=== PATIENT | female | born 1990 | race Caucasian/White ===

== ENCOUNTER 2025-03-02 11:50 | Emergency (ER) | payer OTHER, SELFPAY ==
[2025-03-02 11:57] VITALS: BP 129/67; PULSE 74; RESP 18; TEMP 36.2; O2SAT 99; BMI 41.1
--- NOTE | 2025-03-02 11:57 | ED_ITS ---
HPI - General Adult General Chief complaint: Wound/Laceration Stated complaint: Hand lac @ work Time Seen by Provider: 03/02/25 11:59 Source: patient Mode of arrival: ambulatory Limitations: no limitations History of Present Illness ED Provider: Fadia Perry PA-C HPI narrative: Patient is a 34 year old assigned female at with no reported medical history presenting to the emergency department today with a laceration to the left 2nd and 3rd fingers tips. Patient states that there was a metal battery plate at work that cut her fingers, she was evaluated by EMS but she has since discovered that the wound on the index finger was deeper than she originally thought. Patient denies any other complaints at this time. Relieving factors: none Exacerbating factors: none Related Data Previous Rx's ?Medication ?Instructions ?Recorded amoxicillin 875 mg-potassium 1 tab PO BID 5 days #10 t abs 03/02/25 clavulanate 125 mg tablet Allergies Allergy/AdvReac Type Severity Reaction Status Date / Time No Known Allergies Allergy Verified 03/02/25 12:00 Review of Systems 2 Constitutional: Constitutional: Reports as per HPI Eyes: Eyes: Reports as per HPI ENT: Reports as per HPI Cardiovascular: Cardiovascular: Reports as per HPI Respiratory: Respiratory: Reports as per HPI Gastrointestinal: Gastrointestinal: Reports as per HPI Genitourinary: Genitourinary: Reports as per HPI Musculoskeletal: Musculoskeletal: Reports as per HPI Integumentary/Breasts: Skin/Breast: Reports as per HPI Neurologic: Reports as per HPI Psychiatric: Psychiatric: Reports as per HPI Endocrine: Endocrine: Reports as per HPI Hematologic/Lymphatic: Hematologic/Lymphatic: Reports as per HPI Allergic/Immunologic: Allergic/Immunologic: Reports as per HPI [facility] Past Medical History Attestation statement: The following information was validated with the patient. Source: old records reviewed and nursing notes reviewed Social History Social History Advance Directives: Yes Advance Directives Information Provided: Yes Advance Directives on File: No Do you have a plan to hurt others: No Plan Physical Exam ED Vital Signs: Vital Signs - 24 hr 03/02/25 11:57 Temperature 97.1 F Pulse Rate 74 Respiratory Rate 18 Blood Pressure 129/67 Pulse Oximetry 99 Oxygen Delivery Method Room Air BMI result Body Mass Index 41.1 Const General: cooperative, no acute distress, alert and awake Nutritional Appearance: well nourished Orientation/consciousness: patient oriented x3 HENMT Head: Yes normal to inspection and Yes atraumatic Ears: hearing grossly normal bilaterally and external ears normal General nose exam: Normal external nose present, no nasal discharge noted and no epistaxis Face and sinus: Yes normal facial exam, No abrasion and No laceration Mouth: Normal oral and palatal mucosa present, no drooling and no muffled voice Eyes General: appearance normal, both eyes and all related structures Periorbital: periorbital findings normal Eyelids: Yes eyelids normal Conjunctivae: conjunctivae normal Pupils: Equal, round and reactive pupils present EOM: EOMs intact bilaterally Neck Neck: Yes normal visual inspection and Yes full ROM Resp Effort & Inspection: normal respiratory effort and able to speak in complete sentences Neuro General: patient oriented x3, moves all extremities and CN's II-XI intact bilaterally Cranial nerves: Yes Equal, round and reactive pupils present Cognition (Neuro): normal cognition Extrem Other: General: Yes full ROM and Yes capillary refill normal Psych Appearance: grossly normal Mental Status: mental status grossly normal Affect: normal affect Attitude: cooperative Thought process: Normal thought process present Thought content: Normal thought content present Insight: Good insight present (Psych) Medications Administered Discontinued Medications Generic Name Dose Route Start Last Admin Trade Name Freq PRN Reason Stop Dose Admin Diphtheria/Tetanus/Acell Pertussis 0.5 ml 03/02/25 11:59 03/02/25 12:05 Diphth,Pertus(Acell),Tet Adult 0.5 Ml Syringe IM 03/02/25 12:00 0.5 ml .ONCE ONE Administration Procedures Laceration Laceration 1: Site: other (2nd digit) Side (If applicable): left Size (cm): 1 Description: linear Depth: simple, single layer Pre-repair: irrigated extensively and deep structures intact Skin layer closed with: other (dermabond) Size (cm): other (dermabond) Technique: other (dermabond) Laceration 2: Site: other (3rd digit) Side (If applicable): left Size (cm): 0.75 Description: linear Depth: simple, single layer Pre-repair: irrigated extensively and deep structures intact Skin layer closed with: other (dermabond) Size (cm): other (dermabond) Technique: other (dermabond) Medical Decision Making Medical Decision Making MDM Narrative: Patient is a 34 year old assigned female at with no reported medical history presenting to the emergency department today with a laceration to the left 2nd and 3rd fingers tips. Patient's physical exam was as noted in the physical exam portion of this note. Patient's PMS and ROM are intact and present to the left upper extremity. I explained my physical exam findings to the patient. I answered all questions asked by the patient. Patient's left 2nd and 3rd finger lacerations were irrigated and soaked in an iodine + saline mixture, without incident. Once dried, the lacerations were repaired with dermabond, without incident. Patient's PMS was intact prior to and after cleaning and dermabond repair. Patient's lacerations were then dressed with a non-stick gauze, 2x2 regular gauze, and loose web roll gauze to secure it - without incident. Patient's PMS was intact prior to and after bandage application. I stressed the importance of the patient taking her medication as directed (either prescribed or as the over the counter packaging recommends). I stressed the importance of the patient following up with her primary care provider and given this was a work place injury - work connection. I stressed the importance of the patient returning to the emergency department immediately if her symptoms were to worsen or if she were to develop any dizziness, shortness of breath, difficulty breathing, chest pain, blurry vision, loss of vision, nausea, vomiting, abdominal pain, fever, chills, back pain, or any other complaints. Patient verbalized agreement and understanding with this treatment plan and discharge. Patient was brought up to date on her tetanus status while in the department. Patient prescribed prophylactic antibiotic given mechanism of injury. Differential Diagnosis Differential Diagnoses: The differential diagnosis associated with the presentation includes Laceration Abrasion Admission/Observation Consideration of admission/observation: Escalation of care including admission/observation considered Patient would have been admitted to the hospital had her clinical presentation warranted hospital admission. Tests considered The following testing was considered but not selected: I considered obtaining an x-ray of the left hand however, the patient's mechanism of injury and current clinical presentation did not warrant this. Prescription Management I considered prescription management with: Antibiotic (patient prescribed a prophylactic antibiotic secondary to mechanism of injury) Discharge Plan Discharge Clinical Impression: Laceration Patient Disposition: Home, Self-Care Instructions: Laceration (DC), Skin Adhesive Care (ED) Additional Instructions: Your lacerations today required skin adhesive - do NOT get the affected areas wet for at LEAST the next 7 days. Perform daily wound checks and dressing changes. Given how the injury occurred, you have been prescribed a prophylactic antibiotic - please take this as prescribed. Given this was a work place incident - you should follow up with work connection. IF you are prescribed home medications and/or you are taking over the counter medications at home - it is very important you continue to do so as prescribed / directed unless told otherwise. Follow up with a primary care provider. Return to the emergency department immediately if your symptoms worsen or if you develop any numbness, tingling, dizziness, shortness of breath, difficulty breathing, chest pain, blurry vision, loss of vision, nausea, vomiting, abdominal pain, fever, chills, back pain, or any other complaints. L If you do not have a primary care provider - call any of the below numbers to establish and follow up with a primary care provider. [facility] [place] ([place]) [phone] [place] [address], [address] [facility] [place] [place] ([facility]) [phone] [place] [address], [address] [facility], [address] [facility] [place] [facility] [place] ([facility]) [phone] [place] [address], [address] [facility], [address] [facility] [place] Primary Care ([place]) [phone] [place] [address] [address] [facility], [address] [facility] [place] Family Medicine [phone] [place] [address], [address] Please see the information below about our Patient Portal. If you are not yet enrolled in the [facility] Patient Portal, you will receive an enrollment email invitation following your visit to any [facility] [place] setting. You may also self-enroll in the Patient Portal by visiting our website: [email or web address] The following information is required to access the Patient Portal: - Your [facility] [place] [facility] Medical Record Number - Your personal home email address (must match what is in your electronic medical record, Registration staff can assist with this) - Name - Date of Capabilities of the Patient Portal: - Message some providers - View upcoming appointments - Access your health summary, medical history, and visit history - View current conditions and allergies - View procedure and lab results - View your medications, including guidelines, side effects, and precautions - Complete pre-appointment questionnaires requested by your provider - Ready summary reports of your office visits and procedures To access the Patient Portal Mobile Faiza, follow these directions: - Search MoveinBlue in the Faiza Store or Google Play Store - Download the Faiza - Search for [facility] - Enter your login/password Prescriptions: New amoxicillin-pot clavulanate 875-125 mg tablet 1 tab PO BID 5 Days Qty: 10 0RF Referrals: Work [facility] [Provider Group] Referral Note: Given this was a work place injury, you should call to establish and follow up with the work connection team. Tesha Gil, LABORATORY TECHNICIAN [Primary Care Provider, Family Practice] Stand Alone Forms: Work/School Release Print Language: Kazakh
[2025-03-02] MEDS: Diphth,Pertus(ACell),Tet Adult 0.5 ML SYRINGE IM (12:05)
[2025-03-02 12:18] VITALS: BP 129/67; PULSE 74; RESP 18; TEMP 36.2; O2SAT 99
--- OUTSIDE RECORDS SUMMARY | 2025-03-02 13:01 | XMS_ITS | Encounter Summary ---
Author Organization [facility] Address [address] [facility] [address] [place] [address] Phone Care Team Providers Care Watermelon Harvesting Supervisor Name Role Phone Tesha Gil NP Primary Care Provid er Encounter Details Date Type Department Care Team (Late st Contact Info) Description 04/17/2023 Procedure Pass OR Admitting Dept - Virtual Department [address] [place] [address] Social History Tobacco Use Types Packs/Day Years Used Date Smoking Tobacco: Never Smokeless Tobacco: Never Alcohol Use Standard Drinks/Week Comments Never 0 (1 standard drink = 0.6 oz pur e alcohol) sober since 2018 Education Answer Date Recorded Are you interested in more education? Not on chloe e 12/05/2022 Are you concerned about learning? Not on file 12/05/2022 No 12/05/2022 No 12/05/2022 Digital Access Answer Date Recorded No 12/18/2022 No 12/18/2022 Reliable internet access at home? Not on file 12/18/2022 Device with a working camera? Not on file Intimate Partner Violence Answer Date R ecorded Are you denied basic needs s uch as food, clothing, or medical care? No 04/17/2023 In the past 12 months have y ou been in a relationship with a person who hurts, threatens, or tries to control you? No 04/17/2023 Are you denied basic needs s uch as food, clothing, or medical care? No 04/17/2023 In the past 12 months have y ou been in a relationship with a person who hurts, threatens, or tries to control you? 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 Wish to be (Past 1 Month) No 023 1:02 PM EDT Raissa Sanchez RN 2. Non-Specific Active Suici mike Thoughts (Past 1 Month) No 04/17/2023 1:02 PM EDT Raissa Sanchez, NATALY 6. Suicidal Behavior (Lifetime) No 3 1:02 PM EDT Raissa Sanchez RN documented as of this encounter Plan of Treatment Not on file documented as of this encounter Visit Diagnoses Not on filedocumented in this encounter Care Teams Watermelon Harvesting Supervisor Relationship Specialty Start Date End Date Tesha Gil NP [address] [place] [address] PCP - General Nurse Practitioner 12/03/22 documented as of this encounter Additional Source Comments The information contained in this document represents components of the legal health record. It is not the complete legal health record.[facility]
--- OUTSIDE RECORDS SUMMARY | 2025-03-02 13:01 | XMS_ITS | Patient Health Record ---
Author Organization [facility] [place] Address [address] [place] [address] Care Team Providers Care Bar Examiner Name Role Phone Irma Baer Unavailable [phone] Reason For Referral No Information Medications Medication SIG (Take, Route, Frequency, Duration) Notes Start Date End Date Status Walking Boot/Pneumatic As directed Wear Daily; Duration: Until further notice 12/31/2018 Not-Taking Norethindrone once a day for 9 day s each month Active Custom Orthotics as directed 01/13/2019 Active Work Note . . . Due to foot inju ry pt can use knee scooter at work, may need periods of rest 01/13/2019 Active Social History Tobacco Use: Social History Observation Description Date Details (start date - stop date) Former Smoker NA - NA Tobacco Use/Smoking Question Answer Notes Are you a: former smoker Additional Findings: Tobacco Non-User Current no n-smoker Alcohol Screen Question Answer Notes Did you have a drink containing alcohol in the p ast year? No Points 0 Interpretation Negative Tobacco use other than smoking: Question Answer Notes Are you an other tobacco user? No Problems Problem Type SNOMED Code ICD Code Onset Dates Problem Status W/U Status Risk Notes Problem Localized, primary osteoarthritis of the ankle and/or foot (432066438) Osteoarthritis of right ankle and foot (M19.071) Active confirmed Plan Of Treatment Pending Test Test Name Order Date MRI : Foot, right 12/31/2018 X ray : Foot, right 3V 12/31/2018 Insurance Providers Payer Name Payer Address Payer Phone Subscriber Number Group Number Insured Name Patient Relationship to Insured Coverage Start Date Coverage End Date [facility] [address] [place] [phone] [id number] Emilie Mak Self - patient is the insured Medical (General) History Medical History History ICD Code Anxiety Headaches/Migraines Keloid/Thick Scar Psoriasis/eczema Surgical History Surgery Date(Month/Year)
--- OUTSIDE RECORDS SUMMARY | 2025-03-02 13:02 | XMS_ITS | Patient Health Record ---
Author Organization [facility] Address [address] [facility] [address] [place] [address] Care Team Providers Care Undercover Agent Name Role Phone Alba Salinas Unavailable [phone] Allergies No Known Allergies Reason For Referral No Information Medications Medication SIG (Take, Route, Fr equency, Duration) Notes Start Date End Date Status Famotidine 20 MG TAKE 1 TABLET BY DENIA TH TWICE A DAY Oral; Duration: 90 Days Acti ve Sertraline HCl 100 MG 1 tablet Orally On ce a day; Duration: 30 day(s) Active Multi-Vitamin - 1 tablet Orally Once a day Patch Active Social History Tobacco Use: Social History Observation Description Date Details (start date - stop date) Former Smoker NA - NA Tobacco Use/Smoking Question Answer Notes Are you a former smoker How long has it been since you last smoked? 1-5 years Alcohol Screen (Audit-C) Question Answer Notes Did you have a drink contain ing alcohol in the past year? Yes How often did you have a dri nk containing alcohol in the past year? Monthly or less (1 point) How many drinks did you have on a typical day when you were drinking in the past year? 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 Problem Morbid obesity (disorder) (037390267) Morbid (severe) obesity due to excess calories (E66.01) Active confirmed Problem Abnormal vaginal bleeding (368226278) Other specified abnormal uterine and vaginal bleeding (N93.8) Active confirmed Problem Polycystic ovary syndrome (disorder) (391984597) Polycystic ovarian syndrome (E28.2) Active confirmed Problem Excessive and frequent menstruation (053621679) Excessive or frequent menstruation (626.2) Active confirmed Major Problem Metrorrhagia (45510076) Metrorrhagia (626.6) Active confirmed Major Problem Gynecological examination normal (351326199063557) Routine gynecological examination (V72.31) Active confirmed Major Plan Of Treatment Pending Test Test Name Order Date ABO AND RH 06/01/2022 THIN PREP,HPV IF ASCUS, CT/GC (21-29YR) 03/19/2018 THIN PREP,HPV IF ASCUS, CT/GC (21-29YR) 12/31/2016 Next Appt Details Provider Name:Alba rodríguez, 05/06/2025 08:20:00 AM, [address] [facility] [address], [place], [address], Insurance Providers Payer Name Payer Address Payer Phone Subscriber Number Group Number Insured Name Patient Relationship to Insured Coverage Start Date Coverage End Date [facility] [address] [address] [place] [address] [phone] [id number] SUBHASH QUINTANA Self - patient is the insured Medical (General) History Medical History History ICD Code Excessive and frequent menstruation with irregular cycle N92.1 Excessive and frequent menstruation with regular cycle N92.0 Polycystic ovarian syndrome E28.2 Iron deficiency anemia secondary to bloo d loss (chronic) D50.0 Other specified abnormal uterine and vag inal bleeding N93.8 Anemia, unspecified D64.9 Morbid (severe) obesity due to excess ca lories E66.01 Surgical History Surgery Date(Month/Year) [place] Teeth Extraction Gastric Sleeve 04/17/23 Hospitalization History Reason Date(Month/Year) See Surgical Hx
== END 2025-03-02 12:18 | disposition home or self-care (01) ==
PROVIDERS: Emergency Provider Emergency Medicine; PCP Nurse Practitioner Primary Care
DX: S61.211A Laceration without foreign body of left index finger without damage to nail, initial encounter (principal); S61.213A Laceration without foreign body of left middle finger without damage to nail, initial encounter; W45.8XXA Other foreign body or object entering through skin, initial encounter; Y93.9 Activity, unspecified; Y92.512 Supermarket, store or market as the place of occurrence of the external cause; Y99.0 Civilian activity done for income or pay; Z23 Encounter for immunization
CPT/HCPCS: 12001; 90471; 90715; 99282; 99284